=== PATIENT | female | born 1980 | race African-American/Black ===

== ENCOUNTER 2019-05-18 16:18 | Observation (INO) | payer MEDICAID, OTHER ==
[~2019-05-18] VITALS: Ht 165.1 cm; Wt 150.1 kg
[2019-05-18] MEDS ORDERED: LABE200T28 PO (17:18)
[2019-05-18] MEDS ORDERED: PNV1TABL50 PO (17:19)
[2019-05-18] MEDS ORDERED: ASPI-1393 PO (17:19)
[2019-05-18 17:57] LABS: CLARITY URINE CLEAR (CLEAR); COLOR URINE YELLOW (YELLOW); KETONES URINE NEGATIVE (NEGATIVE); LEUKOCYTE ESTERASE URINE NEGATIVE (NEGATIVE); NITRITE URINE NEGATIVE (NEGATIVE); OCCULT BLOOD URINE NEGATIVE (NEGATIVE); PH URINE 7.5 (4.5-8.0); PROTEIN URINE NEGATIVE (NEGATIVE); SPECIFIC GRAVITY URINE 1.026 (1.005-1.030)
[2019-05-18] MEDS ORDERED: ACETAMINOPHEN 500MG TABLET PO NR (18:35)
== END 2019-05-18 19:00 | disposition home or self-care (01) ==
LOC: OB TRIAGE 16:18 → 8 EST LDRP 16:34
PROVIDERS: ADMIT Obstetrics & Gynecology; ATTEND Obstetrics & Gynecology
DX: O99.89 Other specified diseases and conditions complicating pregnancy, childbirth and the puerperium (principal); M54.5 Low back pain; O26.893 Other specified pregnancy related conditions, third trimester; R10.2 Pelvic and perineal pain; O36.8130 Decreased fetal movements, third trimester, not applicable or unspecified; Z3A.30 30 weeks gestation of pregnancy
CPT/HCPCS: 76815; 76818; 81003; 99281; G0378